=== PATIENT | male | born 1970 | race Caucasian/White ===

== ENCOUNTER 2021-01-16 06:25 | Day surgery (SDC) | payer OTHER ==
[2021-01-16] MEDS: Lactated Ringers 1,000 ML IV SCH (06:58)
[2021-01-16] MEDS ORDERED: fentaNYL 100 MCG/2 ML SDV ONE (07:34)
[2021-01-16] MEDS ORDERED: Propofol 200 MG/20 ML SDV ONE (07:34)
--- NOTE | 2021-01-17 14:16 | OR ---
PREOPERATIVE DIAGNOSIS: Screening colonoscopy. POSTOPERATIVE DIAGNOSIS: Screening colonoscopy. PROCEDURE PERFORMED: Total flexible colonoscopy. ANESTHESIA: MAC anesthesia. COMPLICATIONS: None. BLOOD LOSS: Minimal. FINDINGS: Normal total colonoscopy. Start time 0742, cecum 0746, stop 0759. BOWEL PREP: [place] class 3. INDICATIONS: Mr. Lovett is a 50-year-old male who comes in for his first screening colonoscopy. There is no family history of colon cancer. No bloody stools. DETAILS OF PROCEDURE: Informed consent was obtained. The patient was brought to the procedure room, placed in left lateral decubitus position. MAC anesthesia was induced by Anesthesia colleagues. The colonoscope was introduced in the rectum and advanced all the way to cecum. The ileocecal valve and appendiceal orifice were both photographed. The colonoscope was then slowly withdrawn and no abnormalities were identified. Retroflexed views obtained, and the colonoscope was removed. The patient was awoken from anesthesia by Anesthesia colleagues without incident. Recommend repeat screening colonoscopy in 10 years. RKM: 01/16/2021 08:03:36 MODL: 01/16/2021 12:07:38 /[id number]
== END 2021-01-16 09:14 | disposition home or self-care (01) ==
LOC: VM.SDS 06:25
PROVIDERS: ATTEND Student in an Organized Health Care Education/Training Program
DX: Z12.11 Encounter for screening for malignant neoplasm of colon (principal); E66.9 Obesity, unspecified; D35.2 Benign neoplasm of pituitary gland; Z79.899 Other long term (current) drug therapy; Z68.28 Body mass index [BMI] 28.0-28.9, adult
CPT/HCPCS: 00812; J2704; J3010; J7120